=== PATIENT | female | born 1990 ===

== ENCOUNTER 2016-10-10 10:46 | Inpatient (IN) | payer MEDICAID ==
[2016-10-10] MEDS ORDERED: NO HOME MEDICATION (12:14)
[2016-10-10 12:32] LABS: BASO % 0.2 % (0-2); EOS % 0.5 % (0-7); EOSINOPHIL ABSOLUTE COUNT 0.1 tho/cmm (0.0-0.7); HCT-HEMATOCRIT 35.4 % (34.0-49.0); HGB-HEMOGLOBIN 11.9 gm/dl (12.0-15.5); IMMATURE GRANULOCYTES ABSOLUTE 0.05 tho/cmm (0-0.03); IMMATURE GRANULOCYTES PERCENT 0.4 % (0-0.3); LYMPH % 16.4 % (20-45); LYMPH ABSOLUTE COUNT 1.9 tho/cmm (0.8-4.5); MCHC MEAN CORPUSCULAR HGB CONC 33.6 % (32.0-36.0); MCV (MEAN CELL VOLUME) 80.5 fl (82.0-96.0); MEAN PLATELET VOLUME 10.3 cmc (9.4-12.4); MONOCYTE ABSOLUTE COUNT 0.8 tho/cmm (0.0-1.2); NEUTROPHIL ABSOLUTE COUNT 8.8 tho/cmm (1.6-8.0); NEUTROPHIL-AUTOMATED 8.8 tho/cmm (1.6-8.0); NEUTROPHILS % 75.5 % (40-80); PLATELET COUNT 275 tho/cmm (150-450); RED CELL DISTRIBUTION WIDTH 14.8 % (12.4-16.4); WHITE BLOOD COUNT 11.7 tho/cmm (4.0-10.0)
[2016-10-10 16:12] LABS: CORD BLOOD PH ARTERIAL 7.3 Units (7.18-7.38)
[2016-10-11 05:54] LABS: BASO % 0.2 % (0-2); EOS % 0.4 % (0-7); EOSINOPHIL ABSOLUTE COUNT 0.1 tho/cmm (0.0-0.7); HCT-HEMATOCRIT 32.1 % (34.0-49.0); HGB-HEMOGLOBIN 10.6 gm/dl (12.0-15.5); IMMATURE GRANULOCYTES ABSOLUTE 0.07 tho/cmm (0-0.03); IMMATURE GRANULOCYTES PERCENT 0.5 % (0-0.3); MCH (MEAN CORPUSCULAR HGB) 26.8 pg (28.0-32.0); MCV (MEAN CELL VOLUME) 81.1 fl (82.0-96.0); MEAN PLATELET VOLUME 9.9 cmc (9.4-12.4); MONO % 10.6 % (0-12); MONOCYTE ABSOLUTE COUNT 1.4 tho/cmm (0.0-1.2); NEUTROPHIL ABSOLUTE COUNT 9.5 tho/cmm (1.6-8.0); NEUTROPHIL-AUTOMATED 9.5 tho/cmm (1.6-8.0); NEUTROPHILS % 73.3 % (40-80); PLATELET COUNT 251 tho/cmm (150-450); RED BLOOD COUNT 3.96 mil/cmm (4.00-5.20)
[2016-10-11] MEDS ORDERED: IBUPROFEN800 M1 PO (09:09)
[2016-10-11] MEDS ORDERED: PRENATAL-U CAPS1 CAP PO (09:11)
[2016-10-11] MEDS ORDERED: NORCO 5-325 TA1 EACH PO (09:11)
== END 2016-10-11 16:25 | DRG 775 ==
LOC: LDR 10:46 → OBGE 19:15
PROVIDERS: ADMIT Registered Nurse Lactation Consultant
PROC: 10E0XZZ Delivery of Products of Conception, External Approach (ICD-10-PCS; principal; 2016-10-10)
PROC: 10907ZC Drainage of Amniotic Fluid, Therapeutic from Products of Conception, Via Natural or Artificial Opening (ICD-10-PCS; principal; 2016-10-10)
DX: O99.824 Streptococcus B carrier state complicating childbirth (principal); O77.0 Labor and delivery complicated by meconium in amniotic fluid; Z37.0 Single live birth; Z3A.39 39 weeks gestation of pregnancy
CPT/HCPCS: J0690; J2590; J3010